=== PATIENT | male | born 1950 | race Caucasian/White ===

== ENCOUNTER 2017-06-10 06:47 | Emergency (ER) | payer MEDICARE, MEDICAID ==
[2017-06-10 06:48] VITALS: BMI 28.1
[2017-06-10 07:31] VITALS: RESP 20
--- NOTE | 2017-06-10 08:09 | C.PDOC ---
History Of Present Illness 66-year-old male, presents to the emergency department with complaints of urinary retention. Patient states he has been having difficulty urinating since last night. States he drank water and soda yesterday. Patient seen by urologist last year, states he was told he had a "narrow urethra" Patient denies fever, flank pain, abdominal pain, nausea/vomiting, or any other associated symptoms. No other complaints at this time, Time Seen by Provider: 06/10/17 07:06 Chief Complaint (Nursing): Male Genitourinary History Per: Patient History/Exam Limitations: no limitations Onset/Duration Of Symptoms: Days Current Symptoms Are (Timing): Still Present Severity: Moderate Past Medical History Reviewed: Historical Data, Nursing Documentation, Vital Signs Vital Signs: Last Vital Signs Temp 97.9 F 06/10/17 06:54 Pulse 68 06/10/17 06:54 Resp 20 06/10/17 06:54 BP 116/73 06/10/17 06:54 Pulse Ox 100 06/10/17 08:12 - Medical History PMH: Arthritis (Chronic back pain.), Back Problems, HTN, Hypercholesterolemia Denies: Chronic Kidney Disease Surgical History: Endoscopy - [facility] Procedures COLONOSCOPY (02/05/15) OTH & OPEN REPAIR INDIRECT INGUINAL HERNIA W GRFT OR PROSTH (10/01/14) Family History: States: No Known Family Hx - Social History Hx Alcohol Use: No Hx Substance Use: No - Immunization History Hx Tetanus Toxoid Vaccination: No Hx Influenza Vaccination: Yes (2014) Hx Pneumococcal Vaccination: No Review Of Systems Except As Marked, All Systems Reviewed And Found Negative. Constitutional: Negative for: Fever, Chills Cardiovascular: Negative for: Chest Pain Respiratory: Negative for: Shortness of Breath Gastrointestinal: Negative for: Nausea, Vomiting, Abdominal Pain Genitourinary: Positive for: Other (retention). Negative for: Dysuria, Frequency, Hematuria Neurological: Negative for: Weakness, Numbness Physical Exam - Physical Exam Appears: Non-toxic, No Acute Distress, Other (uncomfortable) Skin: Warm, Dry, No Rash Head: Atraumatic, Normacephalic Eye(s): bilateral: Normal Inspection, PERRL, EOMI Nose: Normal Oral Mucosa: Moist Lips: Normal Appearing Neck: Normal ROM Chest: Symmetrical Cardiovascular: Rhythm Regular, No Murmur Respiratory: Normal Breath Sounds, No Accessory Muscle Use Gastrointestinal/Abdominal: Soft, Tenderness (mild, suprapubic) Extremity: Normal ROM Neurological/Psych: Oriented x3, Normal Speech ED Course And Treatment O2 Sat by Pulse Oximetry: 100 Progress Note: Patient treated with Flomax. Bladder scan shows 900mL of urine. Montero catheter inserted by RN and 800mLs obtained. Disposition Counseled Patient/Family Regarding: Studies Performed, Diagnosis, Need For Followup, Rx Given - Disposition Referrals: Alicia Jones [Staff Provider] - Jaret Becker Jr., MD [Staff Provider] - Disposition: HOME/ ROUTINE Disposition Time: 09:00 Condition: STABLE Additional Instructions: SEGUIMIENTO CON UROLOGA DENTRO DE 1 SEMANA USE MEDICAMENTOS SEGN SE INDICA REGRESE AL CAIT DE EMERGENCIA SI LOS SNTOMAS EMPEORAN Prescriptions: Tamsulosin [Flomax] 0.4 mg PO DAILY #7 cap Instructions: Urinary Retention in Men (ED) Forms: [employer] [employer] (Malaysian) Print Language: SYRIAC - Clinical Impression Clinical Impression: Urinary retention - Scribe Statement The provider has reviewed the documentation as recorded by the Scribe (Dimitrios Easton) All medical record entries made by the Scribe were at my direction and personally dictated by me. I have reviewed the chart and agree that the record accurately reflects my personal performance of the history, physical exam, medical decision making, and the department course for this patient. I have also personally directed, reviewed, and agree with the discharge instructions and disposition.
[2017-06-10 08:18] LABS: URINE BILIRUBIN NEGATIVE (NEGATIVE); URINE BLOOD NEGATIVE (NEGATIVE); URINE COLOR Straw (YELLOW); URINE GLUCOSE (UA) NORMAL (Normal); URINE KETONE NEGATIVE (NEGATIVE); URINE LEUKOCYTE ESTERASE NEG Leu/uL (Negative); URINE PROTEIN NEGATIVE (NEGATIVE); URINE UROBILINOGEN NORMAL mg/dL (0.2-1.0)
[2017-06-10 08:37] LABS: RBC URINE 2 /hpf (0-3)
[2017-06-10 08:38] LABS: WBC URINE 1 /hpf (0-5)
[2017-06-10 09:11] VITALS: BP 117/76; PULSE 77; TEMP 98.3; O2SAT 99
== END 2017-06-10 09:17 | disposition home or self-care (01) ==
LOC: C.ER 06:47
DX: R33.9 Retention of urine, unspecified (principal)

== ENCOUNTER 2017-06-18 09:22 | Day surgery (SDC) | payer MEDICARE ==
[2017-06-13 08:14] VITALS: BMI 31.3
[2017-06-18] MEDS ORDERED: Lidocaine 2% Jelly (Uro-Jet) ONE (12:26)
[2017-06-18] MEDS ORDERED: Midazolam 2 MG/2 ML VIAL ONE (12:48)
[2017-06-18] MEDS ORDERED: Propofol 10 mg/ml Inj (20 ML) ONE (12:48)
[2017-06-18] MEDS ORDERED: Lidocaine Hydrochloride 5 ML INJ ONE (12:55)
[2017-06-18] MEDS: Ciprofloxacin 400mg/200ml D5W 400 MG/200 ML BAG IVPB ONE ×2 (12:55→12:58)
[2017-06-18] MEDS ORDERED: Gentamicin 160 MG in Sodium Chloride 0.9% 100 ML IVPB ONE (13:00)
--- NOTE | 2017-06-18 13:07 | PCM.SURG1 ---
Surgeon's Initial Post Op Note - Surgeon's Notes Surgeon: Eugenio Stock Controller: john Type of Anesthesia: General Mask Anesthesia Administered By: staff Pre-Operative Diagnosis: BPH/URINARY RETENTION Operative Findings: bph/DOMÍNGUEZ Post-Operative Diagnosis: n/a Operation Performed: CYSTOSCOPY Specimen/Specimens Removed: NA Estimated Blood Loss: EBL {In ML}: 0 Blood Products Given: N/A Drains Used: No Drains Post-Op Condition: Good Date of Surgery/Procedure: 06/18/17 Time of Surgery/Procedure: 13:06
[2017-06-18 14:23] VITALS: RESP 18; O2SAT 97
[2017-06-18 16:04] VITALS: TEMP 97.7
[2017-06-18 16:08] VITALS: BP 90/59; PULSE 62
--- NOTE | 2017-06-19 14:25 | OP ---
PROCEDURE DATE: PREOPERATIVE DIAGNOSES: Benign prostatic hypertrophy, normal prostate-specific antigen. POSTOPERATIVE DIAGNOSES: Benign prostatic hypertrophy, normal prostate-specific antigen. PROCEDURE: Cystoscopy. FINDINGS: Trilobar hypertrophy of the prostate with bladder outlet obstruction. DESCRIPTION OF PROCEDURE: As follows; prior to the procedure, a detailed informed consent was obtained from the patient. He is aware that the Montero catheter will not be removed today unless there is no evidence of obstruction. He agreed to this procedure and is aware that other procedures may be necessary. After he signed the detailed informed consent, he was brought into the room and received proper anesthesia, and was cystoscoped with #21 Storz panendoscope. The pendulous and membranous urethra were normal. The prostatic urethra showed trilobar hypertrophy with bladder outlet obstruction. Based on the above findings, the patient will require TURP and GreenLight laser prostatectomy. We will discuss options with the patient including the review and complication of each, and follow up in our office in approximately 1 week. Jaret Becker MD
== END 2017-06-18 15:45 | disposition home or self-care (01) ==
LOC: C.SDS 09:22
PROVIDERS: ATTEND Urology
DX: R97.20 Elevated prostate specific antigen [PSA] (principal); N40.1 Benign prostatic hyperplasia with lower urinary tract symptoms
CPT/HCPCS: 52000; J0744; J1580

== ENCOUNTER 2017-06-25 09:35 | Day surgery (SDC) | payer MEDICARE ==
[2017-06-13 08:14] VITALS: BMI 31.3
[2017-06-25 10:02] VITALS: O2SAT 100
[2017-06-25] MEDS ORDERED: Lidocaine 2% Jelly (Uro-Jet) ONE (12:40)
[2017-06-25] MEDS ORDERED: Lactated Ringer's 1,000 ML IV ONE (12:46)
[2017-06-25] MEDS ORDERED: Midazolam 2 MG/2 ML VIAL ONE (12:50)
[2017-06-25] MEDS ORDERED: Propofol 10 mg/ml Inj (20 ML) ONE ×2 (12:50→13:11)
[2017-06-25] MEDS ORDERED: Gentamicin 160 MG in Sodium Chloride 0.9% 100 ML IVPB ONE (13:00)
[2017-06-25] MEDS ORDERED: ePHEDrine 50 mg/ml Inj ONE (13:06)
[2017-06-25] MEDS: Ciprofloxacin 400mg/200ml D5W 400 MG/200 ML BAG IVPB ONE ×2 (13:12→13:14)
--- NOTE | 2017-06-25 13:32 | PCM.SURG1 ---
Surgeon's Initial Post Op Note - Surgeon's Notes Surgeon: Eugenio Able Seaman: OMERO Type of Anesthesia: General LMA Anesthesia Administered By: staff Pre-Operative Diagnosis: BOH DOMÍNGUEZ urinary REtention Operative Findings: SAME Post-Operative Diagnosis: SAME Operation Performed: TULAP Specimen/Specimens Removed: NA Estimated Blood Loss: EBL {In ML}: 0 Blood Products Given: N/A Drains Used: No Drains Post-Op Condition: Good Date of Surgery/Procedure: 06/25/17 Time of Surgery/Procedure: 13:31
[2017-06-25 15:54] VITALS: RESP 18
[2017-06-25 16:22] VITALS: BP 96/52; PULSE 66; TEMP 97.8
--- NOTE | 2017-06-26 01:01 | OP ---
PROCEDURE DATE: 06/25/2017 PREOPERATIVE DIAGNOSES: Benign prostatic hypertrophy and urinary retention. POSTOPERATIVE DIAGNOSES: Benign prostatic hypertrophy and urinary retention. PROCEDURE: GreenLight laser vaporization of the prostate (transurethral laser ablation of the prostate). SURGEON: Jaret Becker MD. FINDINGS: Trilobar hypertrophy of the prostate with significant outlet obstruction. DESCRIPTION OF PROCEDURE: As follows: Patient was asked to sign the detailed informed consent after full explantation of the risks, complications, limitations, and alternatives to GreenLight laser vaporization of the prostate. He signed the consent. He was brought into the room and draped and prepped in the usual manner. A timeout was taken according to the rules and regulations of [facility] and the patient was cystoscoped with laser cystoscope after removing the Montero. The prostate showed trilobar hypertrophy with significant outlet obstruction. The laser resectoscope was inserted within the sheath and vaporization of the prostate was begun at 12 o'clock and carried down to 6 o'clock beginning just distal to the bladder neck and ending just proximal to the verumontanum. The left tissue, the roof tissue, and the base tissue was vaporized in similar fashion resulting in excellent voiding channel. There was minimal bleeding. No injury occurred to the external sphincter, verumontanum, or ureteral orifices. Patient tolerated the procedure well. The bladder was filled with normal saline and the scope was removed. A #20 two-way 5 mL catheter was inserted and drained clear irrigant fluid. Patient tolerated the procedure well, was sent to the recovery room in good condition. Jaret Becker MD
== END 2017-06-25 16:20 | disposition home or self-care (01) ==
LOC: C.SDS 09:35
PROVIDERS: ATTEND Urology
DX: N40.1 Benign prostatic hyperplasia with lower urinary tract symptoms (principal); R33.9 Retention of urine, unspecified
CPT/HCPCS: 52648; J0744; J1580; J7120

== ENCOUNTER 2018-02-01 07:20 | Emergency (ER) | payer MEDICARE ==
[2018-02-01 07:21] VITALS: BMI 31.3
[2018-02-01 07:30] VITALS: RESP 18; O2SAT 100
--- NOTE | 2018-02-01 07:56 | C.PDOC ---
History Of Present Illness 67 y/o male presents to ED with c/o swelling, tenderness and pain to right big toe for "few days". Patient had toe nail removed from right toe 20 days ago and states he developed symptoms after. Patient denies fever, chills or any other complaints at this time. Time Seen by Provider: 02/01/18 07:45 Chief Complaint (Nursing): Lower Extremity Problem/Injury History Per: Patient History/Exam Limitations: no limitations Onset/Duration Of Symptoms: Days Current Symptoms Are (Timing): Still Present Past Medical History Reviewed: Historical Data, Nursing Documentation, Vital Signs Vital Signs: Last Vital Signs Temp 98 F 02/01/18 10:29 Pulse 76 02/01/18 10:29 Resp 18 02/01/18 10:29 BP 126/73 02/01/18 10:29 Pulse Ox 100 02/01/18 10:29 - Medical History PMH: Arthritis, Back Problems, Colonic Polyps, HTN, Hypercholesterolemia (no longer) Surgical History: Endoscopy - [facility] Procedures COLONOSCOPY (02/05/15) OTH & OPEN REPAIR INDIRECT INGUINAL HERNIA W GRFT OR PROSTH (10/01/14) Family History: States: No Known Family Hx - Social History Hx Alcohol Use: No Hx Substance Use: No - Immunization History Hx Tetanus Toxoid Vaccination: No Hx Influenza Vaccination: Yes (2014) Hx Pneumococcal Vaccination: No Review Of Systems Constitutional: Negative for: Fever, Chills Respiratory: Negative for: Shortness of Breath Gastrointestinal: Negative for: Nausea, Vomiting Musculoskeletal: Positive for: Foot Pain Skin: Negative for: Rash Physical Exam - Physical Exam Appears: Non-toxic, No Acute Distress Skin: Warm, Dry, No Rash, Ecchymosis (proximal to right nailbed), Other ( serosanguinous discharge from left and right aspects of nail) Head: Atraumatic, Normacephalic Eye(s): bilateral: Normal Inspection Oral Mucosa: Moist Extremity: Tenderness (right great toe), Capillary Refill (<2 seconds), No Deformity, Swelling (mild to right great toe) Pulses: Right Dorsalis Pedis: Normal Neurological/Psych: Oriented x3, Normal Motor, Normal Sensation ED Course And Treatment O2 Sat by Pulse Oximetry: 100 (RA) Pulse Ox Interpretation: Normal Medical Decision Making Medical Decision Making: discussed with pod resident. he will come see patient. 1015 pt seen by podiatry, recommends d/c qith keflex Disposition Counseled Patient/Family Regarding: Diagnosis, Need For Followup, Rx Given - Disposition Disposition: HOME/ ROUTINE Disposition Time: 10:23 Condition: GOOD Additional Instructions: Por favor tome antibiticos segn lo prescrito. Baylee un seguimiento con howard podiatra el mervat que viene segn lo programado. Please take antibiotics as prescribed. Follow up with your cnc service engineer this coming Nanci as scheduled. Prescriptions: Cephalexin [cephalexin] 500 mg PO TID #21 cap Forms: Gen Discharge Inst Ecuadorean, [employer] (Ecuadorean) Print Language: HUNGARIAN - Clinical Impression Clinical Impression: Toe infection - PA / LAYBOY OPERATOR / Resident Statement MD/DO has reviewed & agrees with the documentation as recorded. - Scribe Statement The provider has reviewed the documentation as recorded by the Franibmarkel Nair All medical record entries made by the Franibmarkel were at my direction and personally dictated by me. I have reviewed the chart and agree that the record accurately reflects my personal performance of the history, physical exam, medical decision making, and the department course for this patient. I have also personally directed, reviewed, and agree with the discharge instructions and disposition.
[2018-02-01 10:30] VITALS: BP 126/73; PULSE 76; TEMP 98
--- NOTE | 2018-02-01 12:12 | CP.PCM.CON ---
History of Present Illness - History of Present Illness History of Present Illness: Podiatry Consult Note: Dr. Skinner 67 year old male with PMHx of arthritis, DM, HTN, colonic polyps, hypercholestrolemia was seen and evaluated in ED approx 20 days s/p right big toe partial nail avulsion. Patient states that he was suppose to follow up with the doctor but missed the appointment. States that he started noticing darkness on the skin and little swelling which led his decision to come to the ED today. Reports that he has mild pain when someone touches the toe. Denies of any drainage from the toe. Reports that he does not keep the dressing on daily. Reports that he has been soaking his foot in salt water. Denies of taking any abx previously. Denies of having any recent F/N/V/C/SOB/CP/headache. Denies of having any other pedal complains. PMHx: arthritis, DM, HTN, colonic polyps, hypercholestrolemia PSHx: Colonoscopy Allergies: N.K.D.A SHx: Denies smoking, EtOH or illicit drug usage Review of Systems - Constitutional Constitutional: As Per HPI Past Patient History - Infectious Disease Hx of Infectious Diseases: None - Past Medical History & Family History Past Medical History?: Yes - Past Social History Smoking Status: Never Smoked - CARDIAC Hx Hypercholesterolemia: Yes (no longer) Hx Hypertension: Yes - MUSCULOSKELETAL/RHEUMATOLOGICAL Hx Arthritis: Yes - GASTROINTESTINAL Hx Gastrointestinal Disorders: Yes - GENITOURINARY/GYNECOLOGICAL Hx Genitourinary Disorders: Yes Hx Prostate Problems: Yes Other/Comment: urinary stricture 10 years ago. elevated psa - PSYCHIATRIC Hx Substance Use: No - SURGICAL HISTORY Hx Surgeries: Yes Hx Herniorrhaphy: Yes (umbilical and right ing) - ANESTHESIA Hx Anesthesia: Yes Hx Anesthesia Reactions: Yes (NAUSEA/VOMITING) Hx Malignant Hyperthermia: No Meds Home Medications: Home Medication List Medication Instructions Recorded Confirmed Type Cephalexin [cephalexin] 500 mg PO TID #21 cap 02/01/18 Rx Allergies/Adverse Reactions: Allergies Allergy/AdvReac Type Severity Reaction Status Date / Time No Known Allergies Allergy Verified 02/01/18 07:25 Physical Exam - Constitutional Appears: Well, Non-toxic, No Acute Distress - Extremities Exam Additional comments: Right LE exam VASC: DP/PT pulses are palpable 2/4, Cap refill time: < 3 sec to all digits, Temp gradient: warm to cool from proximal to distal, no pitting or non-pitting edema noted to the hallux when compared to the left LE DERM: previously avulsed partial nails noted on the medial and lateral nail fold , wound bed appears fully grannular with no active drainage, < 0.5 cm of jorge luis- wound erythema noted, no active drainage, no mal-odor, no probe to bone, no purulence, no tunneling, no undermining, no clinical suspicion of active infection NEURO: Protective sensation grossly intact ORTHO: No pain on palpation of the right hallux, AROM and PROM at the ankle joint within normal limits - Neurological Exam Neurological exam: Alert, Oriented x3 - Psychiatric Exam Psychiatric exam: Normal Affect, Normal Mood Results - Vital Signs Recent Vital Signs: Last Vital Signs Temp 98 F 02/01/18 10:29 Pulse 76 02/01/18 10:29 Resp 18 02/01/18 10:29 BP 126/73 02/01/18 10:29 Pulse Ox 100 02/01/18 10:29 - Labs Labs: Laboratory Results - last 24 hr 02/01/18 07:33 POC Glucose (mg/dL) 114 H Assessment & Plan - Assessment and Plan (Free Text) Assessment: 67 year old male with extensive PMHx was evaluated s/p medial and lateral border partial nail avulsion on the right Plan: Patient seen and evaluated Discussed plan with attending Dr. Skinner Vital signs reviewed - afebrile Wound cleaned with saline and dressing applied using bacitracin, DSD Educated patient to perform daily dressing changes and soak his foot in epson salt Abx: Keflex 500 mg t.i.d x 7 days Educated patient to follow up with his mail clerk within one week without fail Educated patient to return to the ED if symptoms worsen Patient demonstrated verbal understanding Thank you for the podiatry consult and allowing to take part in patient care - Date & Time Date: 02/01/18 Time: 12:19
== END 2018-02-01 10:30 | disposition home or self-care (01) ==
LOC: C.ER 07:20
DX: L08.9 Local infection of the skin and subcutaneous tissue, unspecified (principal)